=== PATIENT | male | born 1970 | race Caucasian/White ===

== ENCOUNTER → 2020-05-05 | Outpatient (CLI) | payer BC | LOC: EXRD 10:15 | DX: K76.0 Fatty (change of) liver, not elsewhere classified (principal); K76.89 Other specified diseases of liver | CPT/HCPCS: 76705 ==

== ENCOUNTER → 2020-11-12 | Outpatient (CLI) | payer BC | LOC: EXRD 15:41 | DX: N28.9 Disorder of kidney and ureter, unspecified (principal) | CPT/HCPCS: 76775 ==

== ENCOUNTER → 2021-02-23 | Outpatient (CLI) | payer BC | LOC: KOH-I 09:54 | DX: R10.9 Unspecified abdominal pain (principal) | CPT/HCPCS: 74176 ==

== ENCOUNTER → 2021-10-14 | Outpatient (CLI) | payer BC | LOC: US 09:51 | DX: N28.9 Disorder of kidney and ureter, unspecified (principal); K76.0 Fatty (change of) liver, not elsewhere classified | CPT/HCPCS: 76705 ==

== ENCOUNTER → 2021-11-10 | Outpatient (CLI) | payer BC ==
[2021-11-10 10:15] LABS: HEMOGLOBIN 16.7 gm/dl (14.0-17.5); RED BLOOD COUNT 5.35 M/UL (4.20-5.50)
[2021-11-10 10:45] LABS: BUN/CREATININE RATIO 24 (0-10)
[2021-11-11 08:14] LABS: VITAMIN D, 25-HYDROXY 45.8 ng/mL (30.0-100.0)
[2021-11-11 10:14] LABS: CREATININE, URINE 102.8 mg/dL (Not Estab.)
[2021-11-12 00:07] LABS: ALT (SGPT) P5P 69 IU/L (0-55); APOLIPOPROTEIN A-1 106 mg/dL (101-178); AST (SGOT) P5P 39 IU/L (0-40); BILIRUBIN, TOTAL 0.4 mg/dL (0.0-1.2); CHOLESTEROL, TOTAL 110 mg/dL (100-199); FIBROSIS SCORE 0.39 (0.00-0.21); FIBROSIS STAGE F1-F2 (.); GGT 20 IU/L (0-65); GLUCOSE, SERUM 107 mg/dL (65-99); HAPTOGLOBIN 180 mg/dL (23-355); HEIGHT: 67 in (.); TRIGLYCERIDES 197 mg/dL (0-149); WEIGHT: 275 LBS (.)
== END ==
LOC: LAB 09:26
PROVIDERS: Physician Assistant
DX: E11.9 Type 2 diabetes mellitus without complications (principal); I10 Essential (primary) hypertension; E78.2 Mixed hyperlipidemia; E55.9 Vitamin D deficiency, unspecified; K76.0 Fatty (change of) liver, not elsewhere classified
CPT/HCPCS: 36415; 80053; 80061; 82043; 82172; 82247; 82465; 82550; 82570; 82728; 82947; 82977; 83010; 83036; 83540; 83550; 83883; 84207; 84450; 84460; 84478; 85025; 85610